=== PATIENT | male | born 1960 | race Caucasian/White ===

== ENCOUNTER → 2020-10-09 | Outpatient (CLI) | payer MEDICARE, BC, OTHER ==
--- NOTE | 2020-10-09 18:05 | REP ---
INDICATION: DYSPHAGIA. COMPARISON: None. TECHNIQUE: The procedure was performed by Shasta Armando [facility], under the direct supervision of Dr. Walker. The procedure was performed with Mary Lou Arteaga and Hannah Aaron from speech pathology present. 5 ml aliquots of thin, nectar thick, pudding, mixed fruit, soft food, hard food and pill consistency barium was administered. FINDINGS: Flash penetration was visualized with nectar thick consistency. The detailed report of this examination will be provided by speech pathology. IMPRESSION: Flash penetration with nectar thick consistency, a detailed report will be provided by speech pathology. 2.3 minutes of fluoroscopy time was utilized for this procedure. Some fluoroscopic images are performed with last image hold technology. These images require no additional radiation <Electronically signed by Shasta Armando > 10/09/20 1632 <Electronically signed by Laron Walker > 10/09/20 1804
== END ==
LOC: M ST 14:45
PROVIDERS: ATTEND Otolaryngology
DX: R13.12 Dysphagia, oropharyngeal phase (principal)

== ENCOUNTER → 2024-04-14 | Outpatient (CLI) | payer OTHER, BC | LOC: M RAD 13:03 | PROVIDERS: ATTEND Physician Assistant | DX: M51.369 Other intervertebral disc degeneration, lumbar region without mention of lumbar back pain or lower extremity pain (principal); M47.26 Other spondylosis with radiculopathy, lumbar region ==